=== PATIENT | female | born 1990 | race Hispanic/Latino ===

== ENCOUNTER 2018-01-18 00:28 | Emergency (ER) | payer OTHER ==
[2018-01-18 00:50] LABS: APPEARANCE,URINE Clear (CLEAR); BILIRUBIN,URINE Negative (NEGATIVE); COLOR,URINE Yellow (YELLOW); GLUCOSE, URINE (UA) Negative (NEGATIVE); KETONES,URINE Negative (NEGATIVE); LEUKOCYTE ESTERASE ,URINE Trace (NEGATIVE); NITRATE,URINE Negative (NEGATIVE); OCCULT BLOOD,URINE Negative (NEGATIVE); PROTEIN,URINE Negative (NEGATIVE); UROBILINOGEN,URINE 0.2 mg/dL (0.2-1.0)
[2018-01-18 00:53] LABS: HCG,QUAL RESULT NEGATIVE (NEGATIVE)
[2018-01-18 00:55] LABS: BACTERIA,URINE None Seen /HPF (None Seen); MUCUS,URINE Few LPF (None Seen); RBC,URINE None Seen /HPF (0-1); SQUAMOUS EPITHELIAL CELL,UR Few /HPF (0-2); WBC,URINE 0-1 /HPF (0-1)
[2018-01-18 00:59] LABS: AMPHET/METH SCREEN,URINE NEGATIVE (NEGATIVE); BARBITURATE SCREEN, URINE NEGATIVE (NEGATIVE); BENZODIAZEPINES SCREEN,URINE NEGATIVE (NEGATIVE); CANNABINOID SCREEN,URINE NEGATIVE (NEGATIVE); COCAINE SCREEN,URINE NEGATIVE (NEGATIVE); OPIATE SCREEN,URINE NEGATIVE (NEGATIVE); PHENCYCLIDINE SCREEN,URINE NEGATIVE (NEGATIVE)
[2018-01-18] MEDS ORDERED: ACETAMINOPHEN 325 MG TAB ONE (01:10)
== END 2018-01-18 01:16 | disposition home or self-care (01) ==
LOC: EDH 00:28
DX: S50.02XA Contusion of left elbow, initial encounter (principal); Z72.0 Tobacco use; V57.5XXA Driver of pick-up truck or van injured in collision with fixed or stationary object in traffic accident, initial encounter; Y93.89 Activity, other specified; Y92.89 Other specified places as the place of occurrence of the external cause; Y99.8 Other external cause status
CPT/HCPCS: 73080; 80305; 81001; 81025

== ENCOUNTER 2018-06-02 14:21 | Emergency (ER) | payer MEDICAID, OTHER ==
[2018-06-02 14:44] LABS: BILIRUBIN,URINE Negative (NEGATIVE); COLOR,URINE Yellow (YELLOW); GLUCOSE, URINE (UA) Negative (NEGATIVE); KETONES,URINE 40 mg/dL (NEGATIVE); LEUKOCYTE ESTERASE ,URINE Moderate (NEGATIVE); NITRATE,URINE Positive (NEGATIVE); OCCULT BLOOD,URINE Negative (NEGATIVE); PH,URINE 6.5 (5.0-8.0); PROTEIN,URINE Negative (NEGATIVE)
[2018-06-02 14:45] LABS: HCG,QUAL RESULT POSITIVE (NEGATIVE)
[2018-06-02 14:47] LABS: APPEARANCE,URINE SLIGHTLY CLOUDY (CLEAR)
[2018-06-02 15:10] LABS: BACTERIA,URINE Moderate /HPF (None Seen); RBC,URINE 0-1 /HPF (0-1)
[2018-06-02 15:11] LABS: SQUAMOUS EPITHELIAL CELL,UR Few /HPF (0-2)
[2018-06-02] MEDS ORDERED: SODIUM CHLORIDE 0.9% 1000ML 1,000 ML IV ONE (15:24)
[2018-06-02] MEDS ORDERED: SODIUM CHLORIDE 0.9% 50 ML IV ONE (15:24)
[2018-06-02] MEDS ORDERED: CEFTRIAXONE SODIUM 1 GM ONE (15:24)
[2018-06-02 15:28] LABS: BASOPHILS % (AUTO) 0.6 % (0.0-5.0); EOSINOPHILS % (AUTO) 1.8 % (0.0-8.0); HEMATOCRIT 41.8 % (36-48); LYMPHOCYTES % (AUTO) 23.5 % (21.0-51.0); MEAN CORPUSCULAR HEMOGLOBIN 31.3 pg (27.0-33.0); MEAN CORPUSCULAR HGB CONC 34.7 g/dL (32.0-36.0); MEAN CORPUSCULAR VOLUME 90.2 fL (79-99); MONOCYTES % (AUTO) 6.1 % (3.0-13.0); PLATELET COUNT (AUTO) 261 K/uL (130-400); RED BLOOD CELL COUNT(AUTO) 4.63 MIL/uL (4.00-5.50); RED CELL DISTRIBUTION WIDTH 12.3 % (11.0-15.5); WHITE BLOOD COUNT (AUTO) 8.9 K/uL (4.8-10.8)
[2018-06-02 15:38] LABS: CREATININE 0.6 mg/dL (0.5-1.5); POTASSIUM 3.4 mmol/L (3.5-5.1)
[2018-06-02] MEDS ORDERED: ONDANSETRON HCL 4 MG/2 ML VIAL ONE (15:44)
== END 2018-06-02 16:39 | disposition home or self-care (01) ==
LOC: EDH 14:21
DX: O23.41 Unspecified infection of urinary tract in pregnancy, first trimester (principal); Z3A.09 9 weeks gestation of pregnancy
CPT/HCPCS: 36415; 76770; 80048; 81001; 81025; 85025; 87077; 87088; 87186; 96361; 96374; 96375; 99285; J0696; J2405; J7030

== ENCOUNTER 2018-07-09 17:29 | Emergency (ER) | payer MEDICAID ==
[2018-07-09 18:17] LABS: BASOPHILS % (AUTO) 0.4 % (0.0-5.0); EOSINOPHILS % (AUTO) 2.1 % (0.0-8.0); HEMATOCRIT 39.6 % (36-48); LYMPHOCYTES % (AUTO) 22.9 % (21.0-51.0); MEAN CORPUSCULAR HEMOGLOBIN 30.3 pg (27.0-33.0); MEAN CORPUSCULAR HGB CONC 33.8 g/dL (32.0-36.0); MEAN CORPUSCULAR VOLUME 89.6 fL (79-99); MONOCYTES % (AUTO) 6.6 % (3.0-13.0); PLATELET COUNT (AUTO) 228 K/uL (130-400); RED BLOOD CELL COUNT(AUTO) 4.42 MIL/uL (4.00-5.50); RED CELL DISTRIBUTION WIDTH 12.2 % (11.0-15.5); WHITE BLOOD COUNT (AUTO) 8.7 K/uL (4.8-10.8)
[2018-07-09 18:36] LABS: CREATININE 0.5 mg/dL (0.5-1.5); POTASSIUM 3.4 mmol/L (3.5-5.1)
[2018-07-09 18:37] LABS: APPEARANCE,URINE SL CLOUDY (CLEAR); BILIRUBIN,URINE NEGATIVE (NEGATIVE); COLOR,URINE YELLOW (YELLOW); GLUCOSE, URINE (UA) NEGATIVE (NEGATIVE); KETONES,URINE 5 mg/dL (NEGATIVE); LEUKOCYTE ESTERASE ,URINE TRACE (NEGATIVE); NITRATE,URINE POSITIVE (NEGATIVE); OCCULT BLOOD,URINE SMALL (NEGATIVE); PROTEIN,URINE NEGATIVE (NEGATIVE)
[2018-07-09 18:48] LABS: RBC,URINE None Seen /HPF (0-1)
[2018-07-09 18:49] LABS: BACTERIA,URINE Many /HPF (None Seen)
== END 2018-07-09 18:57 | disposition home or self-care (01) ==
LOC: EDH 17:29
DX: O20.0 Threatened abortion (principal); O23.42 Unspecified infection of urinary tract in pregnancy, second trimester; Z3A.14 14 weeks gestation of pregnancy; Z87.891 Personal history of nicotine dependence
CPT/HCPCS: 36415; 76801; 80048; 81001; 84702; 85025; 86900; 86901; 87077; 87088; 87186; 87210; 87486; 87797

== ENCOUNTER 2018-08-01 22:51 | Emergency (ER) | payer MEDICAID ==
[2018-08-02 00:08] LABS: RAPID GROUP A STREP NEGATIVE (NEGATIVE)
== END 2018-08-02 00:52 | disposition home or self-care (01) ==
LOC: EDH 22:51
DX: O99.512 Diseases of the respiratory system complicating pregnancy, second trimester (principal); J00 Acute nasopharyngitis [common cold]; R05 Cough; Z3A.17 17 weeks gestation of pregnancy
CPT/HCPCS: 87804; 87880

== ENCOUNTER 2018-12-24 10:15 | Inpatient (IN) | payer MEDICAID ==
[~2018-12-24] VITALS: Ht 170.2 cm; Wt 88.5 kg
[2018-12-24 10:46] LABS: APPEARANCE,URINE Clear (CLEAR); BILIRUBIN,URINE Negative (NEGATIVE); COLOR,URINE Yellow (YELLOW); GLUCOSE, URINE (UA) Negative (NEGATIVE); KETONES,URINE Negative (NEGATIVE); LEUKOCYTE ESTERASE ,URINE Large (NEGATIVE); NITRATE,URINE Negative (NEGATIVE); OCCULT BLOOD,URINE Small (NEGATIVE); PROTEIN,URINE Trace mg/dL (NEGATIVE); UROBILINOGEN,URINE 0.2 mg/dL (0.2-1.0)
[2018-12-24 11:05] LABS: RBC,URINE 0-1 /HPF (0-1)
[2018-12-24 11:06] LABS: BACTERIA,URINE Rare /HPF (None Seen); SQUAMOUS EPITHELIAL CELL,UR Rare /HPF (0-2)
[2018-12-24] MEDS: LACTATED RINGERS 1000ML 1,000 ML IV SCH ×3 (11:50→20:54)
[2018-12-24] MEDS: ACETAMINOPHEN-CODEINE 300/30MG TAB PO SCH (12:00)
[2018-12-24] MEDS ORDERED: LACTATED RINGERS 1000ML 1,000 ML IV PRN (16:35)
[2018-12-24] MEDS ORDERED: MEPERIDINE-PF 25 MG/ML SYG IM PRN (16:45)
[2018-12-24] MEDS ORDERED: MEPERIDINE-PF 50 MG/ML SYG IVP PRN (16:45)
[2018-12-24] MEDS ORDERED: OXYTOCIN-LR 20 UNITS/1000 ML 1,000 ML IV SCH (16:45)
[2018-12-24 17:13] LABS: HEMATOCRIT 34.4 % (36-48); MEAN CORPUSCULAR VOLUME 87.9 fL (79-99); PLATELET COUNT (AUTO) 239 K/uL (130-400); RED BLOOD CELL COUNT(AUTO) 3.92 MIL/uL (4.00-5.50); WHITE BLOOD COUNT (AUTO) 9.5 K/uL (4.8-10.8)
[2018-12-24] MEDS ORDERED: ROPIVACAINE 0.2% 100ML VIAL 100 ML EP SCH (20:15)
[2018-12-24] MEDS ORDERED: LACTATED RINGERS 500 ML 500 ML IV PRN (20:15)
[2018-12-24] MEDS ORDERED: NALOXONE HCL 0.4 MG/1 ML ML IV PRN (20:15)
[2018-12-24] MEDS ORDERED: EPHEDRINE SULFATE 50 MG/ML AMPULE IVP PRN (20:15)
[2018-12-25] MEDS ORDERED: MEASLES/MUMPS/RUBELLA VACCINE, LIVE 0.5 ML/VIAL SQ PRN (01:00)
[2018-12-25] MEDS ORDERED: DIPH,PERTUSS(ACELL),TET VAC/PF 0.5 ML VIAL IM PRN (01:00)
[2018-12-25] MEDS ORDERED: LANOLIN 30GM OINTMENT TP PRN (01:00)
[2018-12-25] MEDS ORDERED: BENZOCAINE/LANOLIN/ALOE VERA 60 ML AEROSOL TP PRN (01:00)
[2018-12-25] MEDS ORDERED: ACETAMINOPHEN 325 MG TAB PO PRN (01:00)
[2018-12-25] MEDS ORDERED: WITCH HAZEL 1 PAD TP PRN (01:00)
[2018-12-25] MEDS: IBUPROFEN 600 MG TABLET PO PRN ×4 (02:18→22:49)
[2018-12-25 02:46] VITALS: BP 124/73
[2018-12-25] MEDS ORDERED: OXYTOCIN 10 USP UNITS/ML 20 UNIT in LACTATED RINGERS 1000ML 1,000 ML IV SCH (03:00)
[2018-12-25] MEDS: LACTATED RINGERS 1000ML 1,000 ML IV SCH ×2 (06:07→14:10)
[2018-12-25] MEDS: ACETAMINOPHEN-CODEINE 300/30MG TAB PO SCH (06:08)
[2018-12-25 06:45] LABS: HEMATOCRIT 34.4 % (36-48); MEAN CORPUSCULAR HEMOGLOBIN 29.3 pg (27.0-33.0); MEAN CORPUSCULAR HGB CONC 33.3 g/dL (32.0-36.0); PLATELET COUNT (AUTO) 227 K/uL (130-400); RED BLOOD CELL COUNT(AUTO) 3.91 MIL/uL (4.00-5.50); RED CELL DISTRIBUTION WIDTH 12.6 % (11.0-15.5); WHITE BLOOD COUNT (AUTO) 11.8 K/uL (4.8-10.8)
[2018-12-25 07:45] VITALS: BP 112/71
[2018-12-25] MEDS: DOCUSATE SODIUM 100 MG CAP PO SCH ×2 (08:33→20:16)
[2018-12-25 11:31] VITALS: BP 108/72
[2018-12-25 16:26] VITALS: BP 107/69
[2018-12-25 20:14] VITALS: BP 112/79
[2018-12-25 23:31] VITALS: BP 120/70
[2018-12-26 03:37] VITALS: BP 110/76
[2018-12-26 08:10] VITALS: BP 126/86
[2018-12-26] MEDS: DOCUSATE SODIUM 100 MG CAP PO SCH (08:55)
[2018-12-26] MEDS: IBUPROFEN 600 MG TABLET PO PRN (08:56)
[2018-12-26 09:13] LABS: HEPATITIS Bs ANTIGEN SCREEN P Negative (Negative)
--- NOTE | 2018-12-26 10:30 | NUR ---
REPORT RECEIVED FROM SARY MERCEDES RN AND NURSING CARE TRANSFERED AT THIS TIME.
[2018-12-26 11:23] VITALS: BP 112/76
--- NOTE | 2018-12-26 11:45 | NUR ---
DR. COFFEY ROUNDED AND DISCHARGED PT TO HOME. PATIENT TO FOLLOW UP WITH DR. MALDONADO.
--- NOTE | 2018-12-26 13:30 | NUR ---
PATIENT WAS TAKEN VIA W/C CARRYING BABY IN ARMS TO FAMILY VEHICLE AND WAS DISCHARGED TO SIGNIFICANT OTHER IN STABLE CONDITION.
== END 2018-12-26 13:35 | disposition home or self-care (01) | DRG 560 ==
LOC: EDH 10:15 → LDH 10:32 → OBSVTOIN 10:32 → WSH 12-25 02:40
PROVIDERS: ADMIT Obstetrics & Gynecology; ATTEND Obstetrics & Gynecology
PROC: 10907ZC Drainage of Amniotic Fluid, Therapeutic from Products of Conception, Via Natural or Artificial Opening (ICD-10-PCS; principal; 2018-12-24)
PROC: 10E0XZZ Delivery of Products of Conception, External Approach (ICD-10-PCS; 2018-12-24)
PROC: 3E0R3BZ Introduction of Anesthetic Agent into Spinal Canal, Percutaneous Approach (ICD-10-PCS; 2018-12-24)
PROC: 00HU33Z Insertion of Infusion Device into Spinal Canal, Percutaneous Approach (ICD-10-PCS; 2018-12-24)
PROC: 3E0234Z Introduction of Serum, Toxoid and Vaccine into Muscle, Percutaneous Approach (ICD-10-PCS; 2018-12-25)
DX: O80 Encounter for full-term uncomplicated delivery (principal); Z23 Encounter for immunization; Z37.0 Single live birth; Z3A.38 38 weeks gestation of pregnancy
CPT/HCPCS: 36415; 81001; 85027; 86592; 86850; 86900; 86901; 87340; 90715; 96360; 96361; A4314; G0378; J2590; J7120

== ENCOUNTER 2022-05-20 09:53 | Emergency (ER) | payer MEDICAID ==
[~2022-05-20] VITALS: Ht 170.2 cm; Wt 106.6 kg
[2022-05-20 11:03] LABS: BASOPHILS % (AUTO) 0.3 % (0.0-5.0); HEMATOCRIT 43.4 % (36-48); LYMPHOCYTES % (AUTO) 20.3 % (21.0-51.0); MEAN CORPUSCULAR HEMOGLOBIN 29.7 pg (27.0-33.0); MEAN CORPUSCULAR HGB CONC 33.4 g/dL (32.0-36.0); MEAN CORPUSCULAR VOLUME 88.8 fL (79-99); MONOCYTES % (AUTO) 4.9 % (3.0-13.0); PLATELET COUNT (AUTO) 324 K/uL (130-400); RED BLOOD CELL COUNT(AUTO) 4.89 MIL/uL (4.00-5.50); WHITE BLOOD COUNT (AUTO) 13.2 K/uL (4.8-10.8)
[2022-05-20 11:08] LABS: CREATININE 0.8 mg/dL (0.5-1.5); POTASSIUM 3.7 mmol/L (3.5-5.1)
[2022-05-20 11:11] LABS: APPEARANCE,URINE CLEAR (CLEAR); BILIRUBIN,URINE NEGATIVE (NEGATIVE); COLOR,URINE LIGHT-YELLOW (YELLOW); GLUCOSE, URINE (UA) NEGATIVE (NEGATIVE); KETONES,URINE NEGATIVE (NEGATIVE); LEUKOCYTE ESTERASE ,URINE 75 Leu/uL (NEGATIVE); NITRATE,URINE 1+ (NEGATIVE); OCCULT BLOOD,URINE NEGATIVE (NEGATIVE); PROTEIN,URINE NEGATIVE (NEGATIVE); UROBILINOGEN,URINE 0.2 mg/dL (0.2-1.0)
[2022-05-20 11:13] LABS: ALBUMIN 3.2 g/dL (3.5-5.0); TOTAL PROTEIN, SERUM 7.3 g/dL (6.0-8.3)
[2022-05-20 11:25] LABS: BACTERIA,URINE RARE /HPF (None Seen); MUCUS,URINE RARE LPF (None Seen); SQUAMOUS EPITHELIAL CELL,UR RARE /HPF (0-2)
[2022-05-20 11:27] LABS: HCG,QUALITATIVE URINE NEGATIVE (NEGATIVE)
[2022-05-20 11:48] VITALS: BP 121/76
[2022-05-20] MEDS ORDERED: LIDOCAINE HCL 2% VISCOUS 15 ML UDCUP PO ONE (12:30)
[2022-05-20] MEDS ORDERED: MAG/ALUM/SIMETH 30 ML UDCUP PO ONE (12:30)
[2022-05-20] MEDS ORDERED: FAMOTIDINE 20MG TAB PO ONE (12:30)
[2022-05-20] MEDS ORDERED: FAMO-136 PO (12:51)
[2022-05-20] MEDS ORDERED: OMEP20TA20 PO (12:51)
[2022-05-20] MEDS ORDERED: CEPH500B PO (12:51)
== END 2022-05-20 13:01 | disposition home or self-care (01) ==
LOC: EDH 09:53
DX: K21.9 Gastro-esophageal reflux disease without esophagitis (principal); N39.0 Urinary tract infection, site not specified; Z79.899 Other long term (current) drug therapy
CPT/HCPCS: 36415; 80053; 81001; 81025; 83690; 85025; 87077; 87088; 87186; 93005

== ENCOUNTER 2024-02-18 21:21 | Emergency (ER) | payer MEDICAID, OTHER ==
[~2024-02-18] VITALS: Ht 170.2 cm; Wt 97.5 kg
[~2024-02-18 21:21] MED LIST: CEPH500B PO; FAMO-136 PO; OMEP20TA20 PO
[2024-02-18 21:56] LABS: BASOPHILS # (AUTO) 0.04 K/uL (0.00-0.20); BASOPHILS % (AUTO) 0.4 % (0.0-5.0); EOSINOPHILS # (AUTO) 0.33 K/uL (0.00-0.70); EOSINOPHILS % (AUTO) 3.3 % (0.0-8.0); HEMATOCRIT 41.7 % (36-48); IMMATURE GRANULOCYTE ABSOLUTE 0.04 K/uL (0-1); LYMPHOCYTES # (AUTO) 2.4 K/uL (1.0-4.8); LYMPHOCYTES % (AUTO) 24.6 % (21.0-51.0); MEAN CORPUSCULAR HEMOGLOBIN 29.5 pg (27.0-33.0); MEAN CORPUSCULAR HGB CONC 33.6 g/dL (32.0-36.0); MEAN CORPUSCULAR VOLUME 87.8 fL (79-99); MONOCYTES # (AUTO) 0.5 K/uL (0.1-1.0); MONOCYTES % (AUTO) 5.1 % (3.0-13.0); NEUTROPHILS # (AUTO) 6.5 K/uL (1.8-7.7); NEUTROPHILS % (AUTO) 66.2 % (40.0-77.0); PLATELET COUNT (AUTO) 288 K/uL (130-400); RED BLOOD CELL COUNT(AUTO) 4.75 MIL/uL (4.00-5.50); RED CELL DISTRIBUTION WIDTH 13.2 % (11.0-15.5); WHITE BLOOD COUNT (AUTO) 9.9 K/uL (4.8-10.8)
[2024-02-18 22:05] LABS: CREATININE 0.9 mg/dL (0.5-1.0); POTASSIUM 3.6 mmol/L (3.5-5.1)
[2024-02-18] MEDS: 0.9%NACL 1000ML 1,000 ML IV ONE (22:05)
[2024-02-18] MEDS: DICYCLOMINE HCL 10 MG/5 ML ML PO ONE (22:05)
[2024-02-18] MEDS: MAG/ALUM/SIMETH 30 ML UDCUP PO ONE (22:05)
[2024-02-18] MEDS: LIDOCAINE HCL 2% VISCOUS 15 ML UDCUP PO ONE (22:05)
[2024-02-18] MEDS: ONDANSETRON 4MG INJ IVP ONE (22:06)
[2024-02-18] MEDS: PANTOPRAZOLE 40 MG/VIAL IVP ONE (22:06)
[2024-02-18 22:09] LABS: ALBUMIN 3.2 g/dL (3.5-5.0); BILIRUBIN,TOTAL 0.4 mg/dL (0.2-1.0); TOTAL PROTEIN, SERUM 7.3 g/dL (6.0-8.3)
[2024-02-18] MEDS ORDERED: IOHEXOL 350 MG/ML 100ML INFUS..BTL IV ONE (23:24)
[2024-02-18 23:37] LABS: APPEARANCE,URINE CLEAR (CLEAR); BILIRUBIN,URINE NEGATIVE (NEGATIVE); COLOR,URINE LIGHT-YELLOW (YELLOW); GLUCOSE, URINE (UA) NEGATIVE (NEGATIVE); KETONES,URINE NEGATIVE (NEGATIVE); LEUKOCYTE ESTERASE ,URINE 75 Leu/uL (NEGATIVE); NITRATE,URINE NEGATIVE (NEGATIVE); OCCULT BLOOD,URINE NEGATIVE (NEGATIVE); PROTEIN,URINE NEGATIVE (NEGATIVE); UROBILINOGEN,URINE 0.2 mg/dL (0.2-1.0)
[2024-02-18 23:43] LABS: ADD UA MICROSCOPIC YES
[2024-02-18 23:48] LABS: BACTERIA,URINE FEW /HPF (None Seen); SQUAMOUS EPITHELIAL CELL,UR FEW /HPF (0-2)
[2024-02-19] MEDS ORDERED: PANT20TA18 PO (00:09)
[2024-02-19] MEDS ORDERED: CEPH500B PO (00:09)
[2024-02-19 00:50] VITALS: BP 136/80; PULSE 80; RESP 18; O2SAT 97
== END 2024-02-19 00:51 | disposition home or self-care (01) ==
LOC: EDH 21:21
DX: K21.9 Gastro-esophageal reflux disease without esophagitis (principal); N39.0 Urinary tract infection, site not specified; Z79.899 Other long term (current) drug therapy
CPT/HCPCS: 99285; 74177; 96374; 96375; 82150; 80053; 84703; 83690; 85025; 87086 ×2; 87186; 81001; 36415; J7030; J2405; C9113; Q9967

== ENCOUNTER 2024-04-07 23:15 | Emergency (ER) | payer SELFPAY ==
[~2024-04-07] VITALS: Ht 170.2 cm; Wt 104.3 kg
[~2024-04-07 23:15] MED LIST changes: +PANT20TA18 PO
[2024-04-07 23:42] LABS: APPEARANCE,URINE CLEAR (CLEAR); BILIRUBIN,URINE NEGATIVE (NEGATIVE); COLOR,URINE LIGHT-YELLOW (YELLOW); GLUCOSE, URINE (UA) NEGATIVE (NEGATIVE); KETONES,URINE NEGATIVE (NEGATIVE); LEUKOCYTE ESTERASE ,URINE NEGATIVE Leu/uL (NEGATIVE); NITRATE,URINE NEGATIVE (NEGATIVE); OCCULT BLOOD,URINE NEGATIVE (NEGATIVE); PROTEIN,URINE NEGATIVE (NEGATIVE); UROBILINOGEN,URINE 0.2 mg/dL (0.2-1.0)
[2024-04-07 23:45] LABS: HCG,QUALITATIVE URINE NEGATIVE (NEGATIVE)
[2024-04-07 23:46] LABS: BACTERIA,URINE RARE /HPF (None Seen); MUCUS,URINE RARE LPF (None Seen); SQUAMOUS EPITHELIAL CELL,UR RARE /HPF (0-2)
[2024-04-07 23:51] LABS: BASOPHILS # (AUTO) 0.04 K/uL (0.00-0.20); BASOPHILS % (AUTO) 0.3 % (0.0-5.0); EOSINOPHILS # (AUTO) 0.34 K/uL (0.00-0.70); EOSINOPHILS % (AUTO) 2.8 % (0.0-8.0); HEMATOCRIT 42.8 % (36-48); IMMATURE GRANULOCYTE ABSOLUTE 0.05 K/uL (0-1); LYMPHOCYTES # (AUTO) 3.6 K/uL (1.0-4.8); LYMPHOCYTES % (AUTO) 29.2 % (21.0-51.0); MEAN CORPUSCULAR HEMOGLOBIN 29.6 pg (27.0-33.0); MEAN CORPUSCULAR HGB CONC 32.2 g/dL (32.0-36.0); MEAN CORPUSCULAR VOLUME 91.8 fL (79-99); MONOCYTES # (AUTO) 0.8 K/uL (0.1-1.0); MONOCYTES % (AUTO) 6.4 % (3.0-13.0); NEUTROPHILS # (AUTO) 7.4 K/uL (1.8-7.7); NEUTROPHILS % (AUTO) 60.9 % (40.0-77.0); PLATELET COUNT (AUTO) 326 K/uL (130-400); RED BLOOD CELL COUNT(AUTO) 4.66 MIL/uL (4.00-5.50); RED CELL DISTRIBUTION WIDTH 12.9 % (11.0-15.5); WHITE BLOOD COUNT (AUTO) 12.2 K/uL (4.8-10.8)
[2024-04-08 00:10] LABS: CREATININE 0.9 mg/dL (0.5-1.0); POTASSIUM 3.5 mmol/L (3.5-5.1)
[2024-04-08 00:21] LABS: ALBUMIN 3.1 g/dL (3.5-5.0); BILIRUBIN,TOTAL 0.4 mg/dL (0.2-1.0); TOTAL PROTEIN, SERUM 7.2 g/dL (6.0-8.3)
[2024-04-08 00:24] LABS: INR 0.99 (0.85-1.15); PROTHROMBIN TIME 10.7 SEC (9.6-11.6)
[2024-04-08 00:25] LABS: PARTIAL THROMBOPLASTIN TIME 24.8 SEC (26.3-35.5)
[2024-04-08] MEDS: FAMOTIDINE 20MG VIAL IV ONE (02:09)
[2024-04-08] MEDS: ONDANSETRON 4MG INJ IVP ONE (02:09)
[2024-04-08] MEDS ORDERED: KETO10TA2 PO (03:22)
[2024-04-08 03:25] VITALS: BP 126/78; PULSE 72; RESP 18; O2SAT 98
== END 2024-04-08 03:30 | disposition home or self-care (01) ==
LOC: EDH 23:15
DX: N20.0 Calculus of kidney (principal); R10.2 Pelvic and perineal pain; Z79.899 Other long term (current) drug therapy
CPT/HCPCS: 99285; 84484; 80053; 84702; 83690; 85025; 85610; 85730; 83605; 81001; 81025; 36415; 93005; 84145; 74176; 96374; 96375; J3490; J2405

== ENCOUNTER 2024-12-14 18:22 | Emergency (ER) | payer BC ==
[~2024-12-14] VITALS: Ht 167.6 cm; Wt 104.3 kg
[~2024-12-14 18:22] MED LIST changes: +KETO10TA2 PO
[2024-12-14 18:28] VITALS: BP 155/91; PULSE 87; RESP 18; TEMP 98.9
[2024-12-14 19:13] LABS: RAPID GROUP A STREP negative (NEGATIVE)
[2024-12-14 19:26] LABS: INFLUENZA TYPE A Negative For Type A (NEGATIVE); INFLUENZA TYPE B Negative For Type B (NEGATIVE)
[2024-12-14 19:30] LABS: COVID19 (SARS ANTIGEN RAPID) PRESUMPTIVE NEGATIVE (NEGATIVE)
--- NOTE | 2024-12-14 19:34 | ERN ---
ED Note History of Present Illness Stated Complaint: FLU Chief Complaint: Flu Symptoms Time Seen by MD: 18:27 Time Seen by Midlevel: 18:33 Dictation: 34-year-old female with no past medical history coming in with complaints of flu-like symptoms, headache, nausea. Patient states her two daughters are sick with similar symptoms. Patient states she took a Motrin at 3:00 p.m.. Allergies: Coded Allergies: No Known Drug Allergies (Unverified Allergy, Unknown, 12/24/18) Home Meds Active Scripts Ketorolac Tromethamine (Ketorolac Tromethamine) 10 Mg Tablet, 10 MG PO BID for 5 Days, #10 TAB Prov:ZEINA BOSE 04/08/24 Pantoprazole Sodium (Pantoprazole Sodium) 20 Mg Tablet.dr, 20 MG PO DAILY, #14 TAB Prov:NAILA JAMISON MD 02/19/24 Cephalexin Monohydrate (Keflex) 500 Mg Cap, 500 MG PO QID for 7 Days, #28 CAP Prov:NAILA JAMISON MD 02/19/24 Cephalexin Monohydrate (Keflex) 500 Mg Cap, 500 MG PO QID for 7 Days, #28 CAP Prov:FITTINGSUREKHA [employer] SPECIALIST 05/20/22 Famotidine (Pepcid) 20 Mg Tablet, 20 MG PO DAILY, #30 TAB Prov:FITTING,SUREKHA [employer] SPECIALIST 05/20/22 Omeprazole (Omeprazole) 20 Mg Tablet.dr, 20 MG PO DAILY, #30 TAB Prov:FITTING,SUREKHA [employer] SPECIALIST 05/20/22 Past Medical History Past Medical History: No Pertinent History Surgical History: None Review of System Dictation Constitutional: Negative for fever,chills, and weight loss Eyes: Negative for injury, pain,redness, and discharge ENT: Negative for injury,pain or swelling Cardiovascular: Negative for chest pain, palpitations, and edema Respiratory: Negative for shortness of breath, cough, and wheezing, Abdomen/GI: Negative for abdominal pain, nausea, vomiting, diarrhea, and constipation Back: Negative for injury and pain : Negative for injury, bleeding and discharge MS/Extremity: Negative for injury and deformity Skin: Negative for rash, and discoloration Neuro: Negative for headache, weakness, numbness, tingling, and seizure Psych: Negative for suicide ideation, homicidal ideation, and hallucinations Review of Systems: was completed Initial Vital Sign VS Vital Signs Date Time Temp Pulse Resp B/P (MAP) Pulse Ox O2 Delivery O2 Flow Rate FiO2 12/14/24 18:28 99.0 87 18 155/91 99 Physical Exam Dictation General: awake, alert, NAD Head/Face: Normocephalic, atraumatic Eyes: PERRL, EOMI, vision at baseline ENT: oral cavity clear, TMs clear, no signs of infection Neck: Trachea midline, supple, no nuchal rigidity Cardiovascular: RRR, normal S1/S2, No MRGs, no JVD Respiratory: CTAB, no respiratory distress, No rales or wheezes Abdomen: Soft, non-tender, non-distended, normal bowel sounds, no guarding or rebound. Skin: Warm, dry, normal turgor, no rash MS/Extremity: Pulses equal, no cyanosis, neurovascular intact, FROM Neuro: COAx4, GCS 15, strength 5/5, CN 2-12 intact, normal cerebellar exam, normal gait, Psych: Normal behavior, mood, and affect normal Results (Laboratory/Radiology) Laboratory/Radiology Laboratory Tests Test 12/14/24 18:29 Influenza Type A Antigen Negative For Type A Influenza Type B Antigen Negative For Type B SARS-CoV-2 Antigen (Rapid) PRESUMPTIVE NEGATIVE Group A Streptococcus Rapid negative (NEGATIVE) Labs Reviewed?: Yes ED Course ED Course Orders Procedure Category Date Status Time Covid19 (Sars Antigen LAB 12/14/24 Complete Rapid) 18:32 Influenza Type A & B, LAB 12/14/24 Complete Rapid 18:32 Rapid (Group A Strep) LAB 12/14/24 Complete 18:32 Acetaminophen 500mg PHA 12/14/24 Complete Tab (Tylenol 500mg T 18:50 Current Medications Medications (Trade) Dose Ordered Sig/Romulo Route PRN Reason Start Time Stop Time Status Last Admin Dose Admin Acetaminophen (TYLenol 500MG TAB) 1,000 mg ONCE STAT PO 12/14/24 18:50 12/14/24 18:52 DC Vital Signs Date Time Temp Pulse Resp B/P (MAP) Pulse Ox O2 Delivery O2 Flow Rate FiO2 12/14/24 18:28 99.0 87 18 155/91 99 Medical Decision Making MDM MDM: 34-year-old female with no past medical history coming in with complaints of flu-like symptoms, headache, nausea. Patient states her two daughters are sick with similar symptoms. Patient states she took a Motrin at 3:00 p.m.. Swabs are negative. Discussed findings with family. Discussed with family to stay hydrated and take Tylenol [id number]. Educated to follow up with PCP in 1-2 days. Differential diagnosis: Influenza, COVID, viral syndrome Rationale: Tests considered and ordered secondary to shared decision making include: Previous outside records reviewed: Old ER visits. Risk of complication and/or morbidity or mortality of patient management: None Medications-Per medication reconciliation Need for hospitalization: Patient does not meet criteria for hospitalization. Need for emergency major/minor surgery: No There are no social concerns with this patient. Prescription drug management Prescriptions will include symptomatic care Patient's prior external medical records from other ER visits were reviewed by me as indicated. Prior testing and results from previous visits were reviewed. Prior tests were taken into account with medical decision making and resource utilization, independent historian/historians were used to obtain complete medical history. I independently interpreted the test that were performed, results were reviewed by me and considered findings on radiology if ordered. Medical management and examination interpretation discussions were had by me with other qualified healthcare professionals as indicated for the patient's care. DX & DISP Disposition: Discharge Departure Impression: Primary Impression: Viral syndrome Condition: Stable Additional Instructions: Stay hydrated. Take Tylenol for fever and generalized body aches. Follow up with PCP in 1-2 days. Return to the hospital if symptoms worsen. Referrals: SELF,REFERRAL (PCP) Time of Disposition: 19:34 I have reviewed the case, and I agree with, Diagnosis and Plan CARMEN PHILLIPS NP Dec 14, 2024 19:34
[2024-12-14] MEDS: acetaMINOPHEN 500 MG TABLET PO STA (19:36)
== END 2024-12-14 19:54 | disposition home or self-care (01) ==
LOC: EDH 18:22
DX: B34.9 Viral infection, unspecified (principal); Z79.899 Other long term (current) drug therapy; Z20.822 Contact with and (suspected) exposure to COVID-19
CPT/HCPCS: 87426; 87804; 87880; 99283